=== PATIENT | male | born 1985 | race Caucasian/White ===

== ENCOUNTER 2017-03-03 15:57 | Emergency (ER) | payer OTHER ==
[~2017-03-03] VITALS: Ht 180.3 cm; Wt 93.6 kg
[2017-03-03 16:10] VITALS: BP 133/89; PULSE 112; RESP 20; O2SAT 97
[2017-03-03 18:27] LABS: BASOPHILS % (AUTO) 0.3 % (0-3); EOSINOPHILS % (AUTO) 0.8 % (0-5); MONOCYTES % (AUTO) 6.8 % (4-12); Mean Corpuscular Hemoglobin 31.3 pg (27.0-35.0); Mean Corpuscular Volume 87.7 fL (81-100); NEUTROPHILS % (AUTO) 61.4 % (40-74); Platelet Count 257 bil/L (150-400)
[2017-03-03 19:52] LABS: APPEARANCE,URINE CLEAR (CLEAR,HAZY); COLOR,URINE YELLOW (YELLOW); PH,URINE 7.5 (5.0-8.0)
[2017-03-03 19:53] LABS: OCCULT BLOOD,URINE TRACE (NEGATIVE); UROBILINOGEN,URINE NORMAL (NORMAL)
--- NOTE | 2017-03-03 19:56 | ED.REPORT ---
HPI-General Illness Date of Service Mar 03, 2017 ED Provider: Raad Yen MD 31 y/o male with a hx of L1 and L2 fractures presents to the ED complaining of severe sharp pain across his lower back, onset yesterday. He describes it as a dull pain and rates it 3/10 in severity currently. Associated sx include nausea , hematuria that resolved today, chills this morning and diaphoresis. The pt denies urinary and fecal incontinence, vomiting, abdominal pain, flu-like symptoms and fever. Nursing Notes Stated Complaint: LOW SHARP BACK PAIN/KIDNEY Chief Complaint: Male Abdominal Pain Nursing Notes Reviewed: Yes General Time Seen by MD: 19:25 Chief Complaint Back pain Hx Obtained From: Patient Arrived By: Walk-in Sudden in Onset?: Yes Onset Occurred: Yesterday Symptom Duration: Since onset Location: : Back Quality: Dull Radiation: : Does not radiate Severity: Current: Pain level 3 out of 10 Severity: Maximum: Moderate Recent Healthcare: No recent doctor visit Similar Sx Previous: No Past Medical History Smoking History Never Smoker Social History Alcohol Use: Denies alcohol use Drug Use: Denies drug use Ambulatory Status Independent Review of Systems Full Review of Systems Constitutional: Reports: Chills, Denies: Fever GI: Reports: Nausea, Denies: Abdominal pain, Vomiting Male: Reports Hematuria (mild), Denies Incontinence (denies urinary and fecal incontinence ) Musculoskeletal: Reports: Back pain Skin: Reports Diaphoresis Complete sys rev & neg: except as marked. Physical Exam Nursing note and vitals reviewed. Constitutional: Well-developed, well-nourished. Not diaphoretic. Head: Normocephalic and atraumatic. Mouth/Throat: Oropharynx is clear and moist. No oropharyngeal exudate. Eyes: EOM are normal. Pupils are equal, round, and reactive to light. Neck: Supple, no tracheal deviation. Cardiovascular: Normal rate,regular rhythm. Equal and intact distal pulses throughout. Pulmonary/Chest: Effort normal and breath sounds normal. No respiratory distress. Abdominal: Soft. No distension. There is no tenderness, rebound, or guarding. Bowel sounds present. Musculoskeletal: Range of motion grossly intact, moving all extremities. No edema or tenderness appreciated. Neurological: AOx3. Grossly nonfocal exam. Strength and sensation intact and equal to bilateral upper and lower extremities. Skin: Warm and dry, no rashes or pallor appreciated. Psychiatric: Appropriate mood and affect. Behavior appears normal. Vital Signs Vital Signs Date Time Temp Pulse Resp B/P Pulse Ox O2 Delivery O2 Flow Rate FiO2 03/03/17 20:18 36.5 58 16 118/70 98 Room Air 03/03/17 16:10 36.9 112 20 133/89 97 Room Air Interpretation & Diagnostics Lab Results Interpretation Result Diagram: 03/03/17 1800 03/03/17 1800 Test 03/03/17 18:00 White Blood Count 10.1th/mm3 (3.8-10.1) Red Blood Count 4.80mil/mm3 (4.40-5.80) Hemoglobin 15.0g/dL (13.8-17.2) Hematocrit 42.1% (41.0-50.0) Mean Corpuscular Volume 87.7fL (81-100) Mean Corpuscular Hemoglobin 31.3pg (27.0-35.0) Mean Corpuscular Hemoglobin Concent 35.6% (32.0-37.0) Red Cell Distribution Width 11.8% (12.3-15.4) Platelet Count 257bil/L (150-400) Neutrophils (%) (Auto) 61.4% (40-74) Lymphocytes (%) (Auto) 30.3% (14-46) Monocytes (%) (Auto) 6.8% (4-12) Eosinophils (%) (Auto) 0.8% (0-5) Basophils (%) (Auto) 0.3% (0-3) Urine Color Yellow (YELLOW) Urine Appearance Clear (CLEAR,HAZY) Urine pH 7.5 (5.0-8.0) Urine Specific [place] 1.010 (1.003-1.035) Urine Protein Negativemg/dL (NEG,TRACE) Urine Glucose (UA) Negativemg/dL (NEGATIVE) Urine Ketones Negativemg/dL (NEGATIVE) Urine Occult Blood Trace (NEGATIVE) Urine Nitrite Negative (NEGATIVE) Urine Bilirubin Negative (NEGATIVE) Urine Urobilinogen Normalmg/dL (NORMAL) Urine Leukocyte Esterase Negative (NEGATIVE) Urine RBC 0-2/hpf (0-2) Urine WBC 0-5/hpf (0-5) Urine Epithelial Cells None/hpf (NONE-MOD) Urine Crystals None seen (NONE SEEN) Urine Bacteria Few/hpf (NONE-FEW) Urine Hyaline Casts None/lpf (NONE) Urine Granular Casts None seen (NONE SEEN) Urine Waxy Casts None seen (NONE SEEN) Urine Red Blood Cell Casts None seen (NONE SEEN) Urine White Blood Cell Casts None seen (NONE SEEN) Urine Mucus None seen (None Seen) Urine Trichomonas None seen (NONE SEEN) Urine Yeast None (NONE SEEN) Urinalysis Comment None Urine Culture Reflexed Not indicated Hold Urine Received (Received) Sodium Level 141mEq/L (134-144) Potassium Level 4.4mEq/L (3.5-5.2) Chloride Level 102mEq/L (97-108) Carbon Dioxide Level 24mmol/L (18-29) Blood Urea Nitrogen 21mg/dL (6-20) Creatinine 0.82mg/dL (0.76-1.27) Estimat Glomerular Filtration Rate 116mL/min (>59) Glucose Level 93mg/dL (60-99) Calcium Level 9.3mg/dL (8.5-10.1) Magnesium Level 2.0mg/dL (1.6-2.6) Total Bilirubin 0.2mg/dL (0.0-1.2) Aspartate Amino Transf (AST/SGOT) 22U/L (0-50) Alanine Aminotransferase (ALT/SGPT) 31U/L (0-44) Alkaline Phosphatase 74U/L (25-150) Total Protein 7.3g/dL (6.4-8.4) Albumin 4.5g/dL (3.4-5.0) Lipase 47U/L (13-60) Hold Chacko Top Tube Received (Received) Re-Eval/Medical Decision Med Decision/Clinical Course In summary, 31-year-old male presenting to the ED for evaluation of back pain. DDx broad and includes lumbosacral strain, degenerative disc disease, cauda equina syndrome, epidural abscess, AAA, nephrolithiasis. No bowel/bladder incontinence or urinary retention, no saddle anesthesia, unremarkable exam with equal strength to bilateral lower extremities and grossly intact sensation to light touch. Afebrile, non-toxic appearing, no history of IV drug abuse. Patient denies abdominal pain and has a benign abdominal exam. No CVA tenderness or noted hematuria. There is some trace blood in his urine, however his urinalysis is otherwise normal. Given clinical presentation, nephrolithiasis possible, however this seems less likely. CBC and CMP grossly within normal limits. Current presentation seems most consistent with an acute exacerbation of low back pain vs lumbosacral strain. Given above, reasonable to discharge home w/ PCP f/u as soon as able to further discuss strategies to minimize pain and discomfort. Very careful return precautions were discussed, including to return immediately if any abdominal pain, bowel or bladder incontinence, urinary retention, fever, or weakness. Patient agreeable to the plan as stated, no further questions. Time of Eval: 19:32 Re-Evaluation/Progress Note: Rechecked pt. Discussed lab results, diagnosis and plan to discharge. Pt understands and agrees with the plan. F/U instructions and RTER warning given. All questions addressed. Counseled Regarding: Diagnosis, Need for follow-up, When/why to return to ED Discharge & Departure Primary Impression: Flank pain, acute Additional Impressions: Hematuria Back pain Back pain location: low back pain Chronicity: unspecified Back pain laterality: unspecified Sciatica presence: unspecified whether sciatica present Qualified Code: M54.5 - Low back pain Disposition: Home Discharge Condition All VS Reviewed: Yes Condition: Stable Patient Instructions: Flank Pain (ED), Hematuria (ED) Additional Instructions: Thank you for entrusting us with your care today. Your lab results are reassuring. No dangerous cause of your symptoms was found. However, I would like you to follow up with your primary care provider in 2 days for further evaluation. Return to the emergency department in case of worsening pain, increased blood in urine, vomiting or any other new or worsening symptoms. Referrals: Yara Earl ARNP (PCP) Bobby Maier MD (Family) Ariadnaibgilberto Attestation Portions of this note were transcribed by Rehana Sharma. I,, personally performed the history, physical exam and medical decision-making;I reviewed and confirmed the accuracy of the information in the transcribed note. Signed by Kay Platt. 03/03/17 21:24 copies to: Yara Earl ARNP Sanderson, William B MD Mar 03, 2017 19:56 Rehana Sharma Mar 03, 2017 20:07
[2017-03-03 20:18] VITALS: BP 118/70; PULSE 58; RESP 16; O2SAT 98
== END 2017-03-03 20:19 | disposition home or self-care (01) ==
LOC: SED 15:57
DX: R10.9 Unspecified abdominal pain (principal); R31.9 Hematuria, unspecified; M54.5 Low back pain; R11.0 Nausea; R61 Generalized hyperhidrosis; R68.83 Chills (without fever); Z87.828 Personal history of other (healed) physical injury and trauma